=== PATIENT | male | born 1990 | race Caucasian/White ===

== ENCOUNTER 2016-04-29 13:08 | Emergency (ER) | payer MEDICAID ==
[2016-04-29 13:28] VITALS: BP 125/73
[2016-04-29] MEDS ORDERED: oxyCODONE HCL/ACETAMINOPHEN 1 TAB TABLET PO ONE (14:03)
[2016-04-29] MEDS ORDERED: oxyCODONE HCL/ACETAMINOPHEN 1 TAB TABLET ONE (14:06)
--- NOTE | 2016-04-29 15:21 | ERNOTE ---
Lower Extremity HPI - Narrative Date of Service: 04/29/16 - General Lower Extremities Pain: hip: right Time Seen by Provider: 04/29/16 14:03 Source: patient Exam Limitations: no limitations - Immun/Allergies/Home Medications Immunizations: IMMUNIZATION HX Immunizations Up to Date Yes History of Influenza Vaccine No Allergies/Adverse Reactions: Allergies Allergy/AdvReac Type Severity Reaction Status Date / Time tramadol AdvReac Severe Vomiting Verified 04/29/16 13:28 Home Medications: HOME MEDICATIONS Naproxen [Naprosyn] 500 mg PO BID #20 tablet 04/29/16 [Last Taken Unknown] Orphenadrine Citrate [Norflex] 100 mg PO Q12H #10 tablet.sa 04/29/16 [Last Taken Unknown] - History of Present Illness Narrative: Patient who had Tx on the R side pelvis as a child comes due to Tx. Patient with no recent trauma. Patient reports that pain is with movement and with ROM. Location of Incident: home Method of Injury: Reports: unknown Loss of Consciousness: Reports: no loss of consciousness Modifying Factors - (Improves): Reports: rest Modifying Factors - (Worsens): Reports: movement Associated Symptoms: Reports: popping sensation. Denies: snapping, dizzy/light headedness, headache, weakness, sensory loss, chest pain, vomiting/diarrhea, bowel/bladder problems, other injuries Other Injuries: Reports: none Subsequent Symptoms: Denies: sensory loss Prior Treament: Reports: similar symptoms before. Denies: recently hospitalized Review of Systems - Review of Systems Constitutional: Present: no symptoms reported EYE: Present: no symptoms reported ENT: Present: no symptoms reported Respiratory: Present: no symptoms reported Cardiology: Present: no symptoms reported Gastrointestinal/Abdominal: Present: no symptoms reported Genitourinary: Present: no symptoms reported Musculoskeletal: Present: See HPI, muscle pain, muscle stiffness, joint pain - R Hip area Neurological: Present: no symptoms reported Endocrine: Present: no symptoms reported - Patient's Past Medical History Patient History - Medical: No pertinent hx Patient History - Cancer: No Hx of Cancer Patient History - Surgical Procedures: No surgical history - Social History Smoking Status: Current every day smoker Have you smoked in the past 12 months: Yes Do you dip or chew tobacco: No Alcohol Use: rarely Drug Use: none Physical Exam - Physical Exam General Appearance: Present: wd/wn, alert, no apparent distress Eye Exam: Normal inspection: bilateral, PERRL: bilateral, EOMI: bilateral Ears, Nose, Throat: Present: normal ENT inspection, hearing grossly normal Neck: Present: normal inspection, nontender Respiratory: Present: no respiratory distress, normal breath sounds, chest nontender, lungs clear Cardiovascular/Chest: Present: regular rate, rhythm, no murmur, normal peripheral pulses Gastrointestinal/Abdominal: Present: normal bowel sounds, nontender, nondistended, no organomegaly Rectal Exam: Present: nontender, normal rectal tone Male Genitals Exam: Present: normal genitalia, normal prostate, no hernia Back Exam: Present: normal inspection, normal range of motion, no CVA tenderness , no vertebral tenderness Extremity Exam: Present: pelvis stable, other - Patient with pain on the R anterial upper illiac spine area. Patient with a S+D abdomen. Patient with preserved ROM of the hip at the moment Neurological Exam: Present: alert, oriented, normal mood/affect, no motor/ sensory deficits DTR: N=norm/NB=norm/brisk/A=abs/DD=dull/dimin/HC=hyperactive: Bicep (R): Normal , Bicep (L): Normal, Knee (R): Normal, Knee (L): Normal Skin Exam: Present: normal color, warm/dry Lymphatic Exam: Present: no adenopathy ED Progress - Results and Orders Patient's Lab Results:: I have reviewed the patient's lab results. - Vital Signs Patient's Vital Signs:: I have reviewed the patient's vital signs. Vital Signs: Vital Signs 04/29/16 13:25 Temperature 36.5 C Pulse Rate 79 Respiratory 14 Rate Blood Pressure 125/73 O2 Sat by Pulse 96 Oximetry - Progress/Reassessment Chief Complaint: Lower Extremity Pain/ Injury Departure Clinical Impression: Muscle spasm Hip pain Qualifiers: Laterality: right Qualified Code(s): M25.551 - Pain in right hip - Departure Disposition: Home self-care Condition: Stable Instructions: Hip Pain, Muscle Cramps and Spasms, [id number] Additional Instructions: Please follow up with your primary care provider Prescriptions: Naproxen [Naprosyn] 500 mg PO BID #20 tablet Orphenadrine Citrate [Norflex] 100 mg PO Q12H #10 tablet.sa
== END 2016-04-29 15:39 | disposition home or self-care (01) ==
LOC: ER 13:08
DX: M25.551 Pain in right hip (principal); F17.210 Nicotine dependence, cigarettes, uncomplicated